=== PATIENT | male | born 1945 | race Caucasian/White ===

== ENCOUNTER 2017-10-29 14:32 | Inpatient (IN) | payer OTHER ==
[~2017-10-29] VITALS: Ht 185.4 cm; Wt 107.1 kg
[2017-10-29] VITALS (10 sets, daily range): BP systolic 123–175; BP diastolic 77–107
[2017-10-29] MEDS ORDERED: COUM2TAB22 PO (14:46)
[2017-10-29] MEDS ORDERED: FLOM5CAP PO (14:46)
[2017-10-29] MEDS ORDERED: LIPI80TA PO (14:46)
[2017-10-29] MEDS ORDERED: MORPHINE 2 MG/ML 1ML SYRINGE IV ONE (15:15)
[2017-10-29 15:35] LABS: MEAN CORPUSCULAR HEMOGLOBIN 32.7 pg (27.0-33.0); MEAN CORPUSCULAR HGB CONC 33.6 g/dl (32.0-36.5); MEAN CORPUSCULAR VOLUME 97.3 fl (80.0-96.0); PLATELET COUNT, AUTOMATED 134 10^3/uL (150-450); RED CELL DISTRIBUTION WIDTH 14.1 % (11.5-14.5)
[2017-10-29 15:43] LABS: INR 2.67
[2017-10-29 15:56] LABS: CALCIUM LEVEL 8.3 MG/DL (8.8-10.2); CREATININE FOR GFR 1.26 MG/DL (0.70-1.30); GLOMERULAR FILTRATION RATE 59.9 (>42); POTASSIUM SERUM 3.9 MEQ/L (3.5-5.1)
[2017-10-29] MEDS ORDERED: ISOVUE-370 76% 100ML VIAL (Q9967) As Ordered ONE (15:56)
[2017-10-29] MEDS ORDERED: KCL 20MEQ IN D5/NS 1000ML 1,000 ML IV SCH (16:19)
[2017-10-29] MEDS ORDERED: ACETAMINOPHEN TAB 650MG DOSE (2X325MG) PO PRN (16:30)
[2017-10-29] MEDS ORDERED: ONDANSETRON 4MG/2ML VIAL (J2405) IV PRN (16:30)
[2017-10-29] MEDS ORDERED: BISACODYL 10 MG SUPP PR PRN (16:30)
[2017-10-29] MEDS ORDERED: NORCO, ANEXSIA 5/325MG TABLET (HYDROcodone/ACETAMINOPHEN) PO PRN (16:30)
[2017-10-29] MEDS ORDERED: WARF-23 PO (16:45)
--- NOTE | 2017-10-29 16:55 | REP ---
CT CHEST WITH IV CONTRAST: TECHNIQUE: Axial contrast enhanced images from the thoracic inlet to the upper abdomen using 100 mL Isovue 370 intravenous contrast material with multiplanar reformations. There is a large left pneumothorax with shift of heart and mediastinal structures to the right. There is extensive left lower lobe atelectasis. There is mild right lower lobe atelectasis. A tiny amount of left pleural fluid is present. Mild scattered atherosclerotic calcifications is seen of the thoracic aorta without dissection. There is a left pericardial cyst measuring 3.8 cm in diameter. No pericardial effusion is seen. No adenopathy is seen in the chest. There are fractures of the left 4th through 6th ribs. There is a small hiatal hernia. In the upper abdomen there is a midline anterior abdominal hernia containing a bowel loop which is only partially imaged on the most inferior sections. Small gallstones are seen in the gallbladder. Small right renal cyst is noted superiorly. There is a large left renal cyst superiorly measuring about 9.7 cm in diameter. IMPRESSION: Large left pneumothorax with mild shift of heart and mediastinal structures to the right. Bilateral atelectatic changes in the lungs. Left 4th through 6th rib fractures. Left pericardial cyst. Small hiatal hernia. Anterior abdominal hernia is only partially imaged and contains a bowel loop. Gallstones in gallbladder. Signed by Ta Gonzalez MD 10/29/2017 06:00 P
[2017-10-29] MEDS ORDERED: FLUMAZENIL 0.5 MG/5 ML VIAL As Ordered ONE (17:24)
[2017-10-29] MEDS ORDERED: MIDAZOLAM INJ 2 MG/2 ML VIAL (J2250) As Ordered ONE ×2 (17:26→17:27)
[2017-10-29] MEDS ORDERED: LIDOCAINE 1% MDV 20ML VIAL As Ordered ONE (17:27)
[2017-10-29] MEDS ORDERED: LIDOCAINE 1% MDV 20ML VIAL SC ONE (17:47)
[2017-10-29] MEDS ORDERED: NS 1,000 ML IV SCH (18:20)
[2017-10-29] MEDS ORDERED: NALBUPHINE HCL 10 MG/ML AMP (J2300) IV PRN (18:30)
[2017-10-29] MEDS ORDERED: EPIDURAL/PCA KEYS XX PRN (18:30)
[2017-10-29] MEDS ORDERED: NALOXONE INJ 0.4 MG/1 ML VIAL (J2310) IV PRN (18:30)
[2017-10-29] MEDS ORDERED: diphenhydrAMINE INJ 50MG/ML VIAL (J1200) IV PRN (18:30)
[2017-10-29] MEDS ORDERED: MORPHINE 1MG/ML IN 0.9% NACL 100ML IV BAG IV PRN (18:30)
[2017-10-29] MEDS ORDERED: MIDAZOLAM INJ 2 MG/2 ML VIAL (J2250) IV STA (18:34)
[2017-10-29] MEDS ORDERED: MIDAZOLAM INJ 2 MG/2 ML VIAL (J2250) IV ONE (18:45)
--- NOTE | 2017-10-29 18:51 | REP ---
Portable chest x-ray: Single view. History: Status post chest tube insertion. Pneumothorax. Comparison study: CT scan from earlier today. Findings: Current portable chest x-ray demonstrates a left apical chest tube. The left lung is reinflated. A tiny sliver of left apical pleural air is seen. There is some pleural thickening along the left lateral chest wall and soft tissue emphysema is seen inferior and lateral to the left rib cage. There is still some hazy opacity in the left lower lobe region. Right lung remains clear. Oxygen delivery tubing is seen. Impression: Left pleural drainage catheter is in place reinflating the left lung. Signed by Jose Rafael Gates MD 10/29/2017 09:43 P
[2017-10-29] MEDS: KETOROLAC 30 MG/ML VIAL (J1885) IV SCH (19:43)
[2017-10-29] MEDS: WARFARIN SOD 1 MG TAB PO SCH (19:45)
[2017-10-29] MEDS: WARFARIN SOD 5 MG TAB PO SCH (19:45)
[2017-10-29] MEDS ORDERED: HEPARIN SOD (PORCINE) 5000 UNITS/ML VIAL SC SCH (21:00)
[2017-10-29] MEDS: ALBUTEROL SULFATE 2.5 MG/0.5 ML INH NEB SOLN NEB SCH (21:20)
[2017-10-29] MEDS: DOCUSATE SODIUM 100 MG CAP PO SCH (21:32)
[2017-10-29] MEDS: TAMSULOSIN 0.4 MG CAP PO SCH (21:32)
[2017-10-29] MEDS: ATORVASTATIN 20 MG TAB PO SCH (21:33)
[2017-10-30] MEDS: ALBUTEROL SULFATE 2.5 MG/0.5 ML INH NEB SOLN NEB SCH ×4 (01:25→20:00)
[2017-10-30] MEDS: KETOROLAC 30 MG/ML VIAL (J1885) IV SCH ×4 (01:43→17:45)
[2017-10-30 04:00] VITALS: BP 137/82
[2017-10-30 05:25] LABS: MEAN CORPUSCULAR HEMOGLOBIN 32.8 pg (27.0-33.0); MEAN CORPUSCULAR HGB CONC 33.7 g/dl (32.0-36.5); MEAN CORPUSCULAR VOLUME 97.3 fl (80.0-96.0); PLATELET COUNT, AUTOMATED 111 10^3/uL (150-450); RED CELL DISTRIBUTION WIDTH 14.3 % (11.5-14.5)
[2017-10-30 05:37] LABS: ADD MANUAL DIFFER YES; DIFF SLIDE NUMBER 97; POSITIVE DIFF POS FLAG; WHITE BLOOD COUNT 22.8 10^3/uL (4.0-10.0)
[2017-10-30 05:52] LABS: ANION GAP 7 MEQ/L (8-16); BLOOD UREA NITROGEN 22 MG/DL (7-18); CALCIUM LEVEL 7.5 MG/DL (8.8-10.2); CARBON DIOXIDE LEVEL 23 MEQ/L (21-32); CHLORIDE LEVEL 112 MEQ/L (98-107); CREATININE FOR GFR 0.98 MG/DL (0.70-1.30); GLOMERULAR FILTRATION RATE > 60.0 (>42); GLUCOSE, FASTING 105 MG/DL (83-110); POTASSIUM SERUM 3.7 MEQ/L (3.5-5.1); SODIUM LEVEL 142 MEQ/L (136-145)
[2017-10-30 05:53] LABS: ABG BASE EXCESS -1.1 (-2.0-2.0); ABG HCO3 22.8 MEQ/L (22.0-26.0); ABG PARTIAL PRESSURE CO2 35.6 mmHg (35.0-45.0); ABG PARTIAL PRESSURE O2 99.6 mmHg (75.0-100.0); ABG STANDARD HCO3 23.6 MEQ/L (22.0-26.0); ABG TOTAL CO2 23.9 MEQ/L (23.0-31.0); ABG pH (ARTERIAL) 7.424 UNITS (7.350-7.450)
[2017-10-30 07:57] VITALS: BP 129/78
--- NOTE | 2017-10-30 08:08 | HPE ---
DATE OF ADMISSION: 10/29/2017 The patient is seen at the request of the emergency room for multiple rib fractures and a large left sided pneumothorax. HISTORY OF PRESENT ILLNESS: The patient is a 72-year-old white male who was on a 38 inch scaffold installing a ceiling when he lost his balance and stepped off hitting his left side. He did not lose consciousness. It was a misstep and there was no antecedent dizziness or blackout spells. When he hit the ground, he felt immediate pain, but denies shortness of breath. Prior to the incident, he did not complain of shortness of breath. He had a cough with green sputum production every morning. There has been no fevers, chills or sweats. There is no exposure to tuberculosis and there is no convincing asbestos exposure. There has been no dysphagia. In the emergency room, his vital signs showed an oxygen saturation of 86% on room air. His respiratory rate is 20. Blood pressure has always been stable at 145/85 in the emergency room. A chest CT showed him to have a nearly 100% pneumothorax. It does not look as if a chest x-ray was obtained. PAST MEDICAL HISTORY: 1. Prior stroke about 11 years ago which affected his entire left side which resolved spontaneously. He is on warfarin for this prior stroke. 2. Benign prostatic hypertrophy (BPH) for which he is on tamsulosin. 3. Hypercholesterolemia for which he is on Lipitor. PRIOR SURGERIES: 1. Appendectomy as a child. 2. Deviated septum repair. 3. Left ankle repair. MEDICATIONS AT HOME: - Lipitor 80 mg at bedtime - Flomax 0.4 mg every bedtime - warfarin 11 mg every two days alternating with 12 mg every two days PAST TRAVEL HISTORY: He has traveled to [place] and to [place]. No travel to the [facility] or to the [facility]. No foreign travel. EXPOSURES: No dogs or birds at home. He has one cat. No tuberculosis exposure or asbestos exposure. 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 HABITS: Quit smoking 50 years ago. Occasionally drinks three or four beers per week. No illicit drugs. FAMILY HISTORY: Noncontributory to the acute event. REVIEW OF SYSTEMS: Constitutional: See history of present illness (HPI). Without fever, chills, sweats or night sweats. Eyes: Without diplopia. Without transient monocular blindness. Wears glasses. Without prior jaundice. Nose: Without epistaxis. Mouth: Wears dentures. Pulmonary: Does not complain of shortness of breath. Has the above cough. Does not wheeze. Cardiovascular: Without prior documented myocardial infarctions. Without paroxysmal nocturnal dyspnea or orthopnea. No intermittent claudication. No chest pain consistent with angina. Has occasional swelling of his peripheral extremities which is relieved with leg elevation. Gastrointestinal (GI): Without nausea, vomiting, diarrhea, constipation, melena, hematochezia, hematemesis, or abdominal pain. Denies abdominal pain now. Genitourinary (): Without dysuria, hematuria or prior history of renal stones. Neurologic: Without paresthesias, paralyses or seizures. Endocrine: Without diabetes or thyroid disease. Psychiatric: Without pathological psychoses, anxieties or depressions. Hematologic: Has prolonged bleeding time secondary to his warfarin. Lymphatics: Without lumps and bumps in his neck, axilla or groins. PHYSICAL EXAMINATION: Vital Signs: Blood pressure 156/83. Respiratory rate 18 without the use of accessory muscles. His temperature is 98.9. He is 98% saturated on 2 liters nasal cannula. General: Well developed, well nourished, obese, white male in distress with pain on the left side which hurts with moving. Eyes: Pupils equal round and reactive to light. Extraocular movements intact. Sclerae anicteric. Nose without deformity. Mouth shows his mucous membranes to be pink and moist. Lips and commissures without lesions. There is no thrush. He is wearing dentures. Neck is supple. There is no jugular venous distention. No subcutaneous emphysema. Trachea is midline. He has 2+ carotid pulses, without bruits. There is no thyromegaly or lymphadenopathy. Lungs show markedly decreased breath sounds on the left side with a percussion note that is full to the diaphragm on the left side. Right side shows normal vesicular sounds without wheezing, rhonchi or rales. Cardiac: Without murmurs, clicks, gallops or rubs. I cannot feel his point of maximal impulse (PMI). S1, S2 are normal. Cardiac sounds are distant. Abdomen is soft, nontender. Bowel sounds positive. There is no hepatomegaly. No costovertebral angle (CVA) tenderness. He has a ventral hernia or diastasis between the epigastrium and the umbilicus. Extremities: Show trace to 1+ pretibial edema with indentations for his socks. He does wear compression stockings. There is no calf tenderness. No differential swelling of the upper extremities. Skin is warm, dry and perfused, without cyanosis or mottling including that of the nail beds and the knees. Neurologic shows II-XII intact along with gross motor and gross sensation intact. Gait is not tested. Psychiatric shows him to be awake, alert and oriented times three with appropriate mood and affect and conversational. His white count today is 30,000 with hemoglobin and hematocrit of 14.5 and 43.0 and a platelet count of 134. There is no differential. Chemistries show normal electrolytes with a BUN and creatinine of 23 and 1.26 and a glomerular filtration rate of 59.9. Calcium is 8.3 with a glucose of 130. PT/INR are 29.5/2.[address] shows a nearly 80% pneumothorax on the left side with a mediastinal shift with the heart shifted to the right. There is some compression atelectasis from the pneumothorax. There are rib fractures in ribs possibly 11, 6, 5 and 4 laterally. There is no subcutaneous emphysema. Spleen is intact. He looks to have a very large left renal cyst. I do not see the body of the kidney as the CT does not go down that far. There is no pleural effusion or hemothorax at this point in time. Right adrenal is intact as is the left adrenal. Liver is intact. The pancreas is also intact. IMPRESSION: 1. Multiple rib fractures. 2. Traumatic pneumothorax. 3. Hypercholesterolemia. 4. Appropriate Coumadin coagulopathy. 5. History of CVA. 6. BPH. 7. Large left renal cyst. PLAN AND DISCUSSION: I will immediately place a chest tube to relieve the pneumothorax and right shift. As he is on Coumadin, I will treat him with HACK DRIVER pain control. His rib fractures are nondisplaced and do not need any other treatment. He is on Coumadin so I will not put him on heparin for deep vein thrombosis (DVT) prophylaxis.
[2017-10-30] MEDS: MOM 30ML SUSPENSION UDC PO SCH (09:00)
--- NOTE | 2017-10-30 09:57 | REP ---
CHEST, TWO VIEWS: Two views of the chest are performed and compared with prior study of 10/29/2017. There is a left chest tube again noted. I do not see a significant pneumothorax. Mild air is seen in the soft tissues of the left chest wall. There is mild right basilar atelectatic change. There is moderate left basilar consolidative opacity. Cardiomediastinal silhouette is unchanged. Signed by Ta Gonzalez MD 10/30/2017 05:22 P
[2017-10-30] MEDS: DOCUSATE SODIUM 100 MG CAP PO SCH ×2 (09:58→19:58)
[2017-10-30] MEDS: PANTOPRAZOLE 40MG TAB (PROTONIX) PO SCH (09:58)
[2017-10-30 12:00] VITALS: BP 134/78
--- NOTE | 2017-10-30 13:44 | RO ---
DATE OF PROCEDURE: 10/29/2017 PREPROCEDURE DIAGNOSIS: Left pneumothorax. POSTPROCEDURE DIAGNOSIS: Left pneumothorax. PROCEDURE: Insertion of left anterior chest tube. SURGEON: Dr. Alessandro Dinh [facility] PROGRAM RESIDENT: ANESTHESIA: DESCRIPTION OF PROCEDURE: Under satisfactory moderate sedation achieved with 3 mg of Versed, the patient was prepped and draped in the usual sterile fashion. The skin, fascia and pleura was infiltrated with 1% lidocaine. Incision was made and a tunnel was created into the chest wall without difficulty. A #20 chest tube was placed into the apex of the chest and secured with #2 Tevdek suture. The tube was connected to the Pleur-evac. The patient tolerated the procedure well and a chest x-ray is pending.
[2017-10-30 14:27] LABS: INR 3.79
[2017-10-30 14:35] LABS: REASON FOR REVIEW OTHER
[2017-10-30 16:00] VITALS: BP 104/55
[2017-10-30] MEDS ORDERED: WARFARIN SOD 4 MG TAB PO SCH (17:00)
[2017-10-30] MEDS: ATORVASTATIN 20 MG TAB PO SCH (19:57)
[2017-10-30] MEDS: TAMSULOSIN 0.4 MG CAP PO SCH (19:59)
[2017-10-30 20:00] VITALS: BP 126/75
[2017-10-30 23:59] VITALS: BP 119/72
[2017-10-31] MEDS: KETOROLAC 30 MG/ML VIAL (J1885) IV SCH ×4 (00:58→17:18)
[2017-10-31] MEDS: ALBUTEROL SULFATE 2.5 MG/0.5 ML INH NEB SOLN NEB SCH ×4 (01:59→20:00)
[2017-10-31 04:00] VITALS: BP 125/71
[2017-10-31 06:03] LABS: MEAN CORPUSCULAR HEMOGLOBIN 32.4 pg (27.0-33.0); MEAN CORPUSCULAR HGB CONC 33.3 g/dl (32.0-36.5); MEAN CORPUSCULAR VOLUME 97.5 fl (80.0-96.0); PLATELET COUNT, AUTOMATED 116 10^3/uL (150-450); RED CELL DISTRIBUTION WIDTH 14.6 % (11.5-14.5)
[2017-10-31 06:07] LABS: WHITE BLOOD COUNT 20.9 10^3/uL (4.0-10.0)
[2017-10-31 06:08] LABS: ADD MANUAL DIFFER YES; BLASTS POS FLAG; DIFF SLIDE NUMBER 58; POSITIVE DIFF POS FLAG; POSITIVE MORPH POS FLAG
[2017-10-31 06:14] LABS: INR 3.31
[2017-10-31 06:22] LABS: ANION GAP 7 MEQ/L (8-16); BLOOD UREA NITROGEN 26 MG/DL (7-18); CARBON DIOXIDE LEVEL 26 MEQ/L (21-32); CHLORIDE LEVEL 109 MEQ/L (98-107); CREATININE FOR GFR 1.02 MG/DL (0.70-1.30); GLOMERULAR FILTRATION RATE > 60.0 (>42); GLUCOSE, FASTING 109 MG/DL (83-110); POTASSIUM SERUM 4.2 MEQ/L (3.5-5.1); SODIUM LEVEL 142 MEQ/L (136-145)
[2017-10-31 08:00] VITALS: BP 134/77
--- NOTE | 2017-10-31 08:05 | IPN ---
DATE: 10/30/2017 This is the first hospital day for Mr. Kearns after falling off a scaffold and sustaining multiple rib fractures to the left side with a complete pneumothorax. Today his lung is fully expanded to the chest wall and there is no air leak. He is on a TITLE INSPECTOR pump. An epidural was not placed because he is on Coumadin for prior cerebrovascular accident (CVA). On physical examination his vital signs show a T-max of 97.7 with a heart rate that ranges between 71 and 64 in a sinus rhythm, respiratory rate of 18 and 20 without the use of accessory muscles who is 95 to 94% saturated now on room air. Blood pressure is ranging between 137/82 to 129/78. His intake and output over the past 24 hours has been recorded as 907 in and 500 out for a positivity of 500 mL. In the past 12 hours he has taken in 1877 mL in intake of which 740 of that is oral intake and 1000 in IV. I will stop his IV as his oral intake is adequate. He has put out 12 mL from the chest tube and there is no air leak. On physical examination his lung show equal breath sounds on either side with normal vesicular sounds, without wheezes, rhonchi or rales. Cardiac exam shows distant heart sounds without murmurs, clicks, gallops or rubs. I cannot feel his point of maximal impulse (PMI). S1 and S2 are normal. He is obese. Abdomen is soft and nontender. Bowel sounds are positive. There is no hepatomegaly. No costovertebral angle (CVA) tenderness, except that which is referable to the rib fractures on the left. Extremities show trace pretibial edema, no calf tenderness. No differential swelling of the upper extremities. Skin is warm, dry and perfused without cyanosis or mottling including that of the nail beds and the knees. Neck is supple. There is no jugular venous distention. No subcutaneous emphysema. Trachea is midline. Mouth shows his mucous membranes to be pink and moist. Lips and commissures without lesions. No thrush. Eyes show his pupils to be equal, reactive. Extraocular muscles intact. Sclera anicteric. Neuro shows II through XII intact. Gross motor and gross sensation intact. Gait is not tested. Psychiatric shows him to be awake, alert and oriented times three with appropriate mood, affect and conversational. His white count today is 22.8 down from 30.0 yesterday. Hemoglobin and hematocrit are 13.5 and 40.1 respectively with a platelet count of 111 and stable. Differential shows 21% neutrophils, 79% lymphocytes. There are no monocytes. Chemistries today show normal electrolytes with a BUN and creatinine of 22 and 0.98, glucose of 105 and a calcium of 7.5. PT/INR pending. Chest x-ray today shows the lung fully expanded to the chest wall. There are no infiltrates and there is no subcutaneous emphysema. IMPRESSION: 1. Multiple rib fractures left side. 2. Traumatic pneumothorax. 3. Hypercholesterolemia. 4. Appropriate Coumadin coagulopathy. 5. History of CVA. 6. Benign prostatic hypertrophy (BPH). 7. Large left renal cyst. 8. Leukocytosis with lymphocytosis. PLAN AND DISCUSSION: I will order PT/INR daily. He is on his home warfarin. I will discontinue his chest tube suction today. I will be able to get his tube out tomorrow and send him home on . I am a bit concerned about his differential with near 80% lymphocytes. I will order a manual differential for tomorrow.
[2017-10-31] MEDS: DOCUSATE SODIUM 100 MG CAP PO SCH ×2 (09:23→20:57)
[2017-10-31] MEDS: PANTOPRAZOLE 40MG TAB (PROTONIX) PO SCH (09:23)
[2017-10-31 12:00] VITALS: BP 132/72
[2017-10-31] MEDS ORDERED: FUROSEMIDE 40 MG/4 ML VIAL (J1940) IV ONE (12:00)
[2017-10-31] MEDS: PERCOCET 5MG/325MG TAB PO PRN ×2 (12:25→17:17)
[2017-10-31] MEDS: MOM 30ML SUSPENSION UDC PO SCH (12:25)
[2017-10-31] MEDS ORDERED: SLF 3 ML SYR IV PRN (13:15)
[2017-10-31] MEDS: WARFARIN SOD 1 MG TAB PO SCH (15:51)
[2017-10-31] MEDS: WARFARIN SOD 5 MG TAB PO SCH (15:51)
[2017-10-31 16:00] VITALS: BP 127/84
[2017-10-31] MEDS: SLF 3 ML SYR IV SCH ×2 (17:18→20:56)
--- NOTE | 2017-10-31 18:13 | REP ---
CHEST, TWO VIEWS: Two views of the chest are performed and compared to prior study of 10/30/2017. Left chest tube remains in good position. There is no evidence of significant pneumothorax. There is mild left pleural fluid or thickening. There is improved mild atelectatic change in the right base. There is left basilar consolidative atelectasis which is slightly improved on the lateral view. Cardiomediastinal silhouette is unchanged. IMPRESSION: Mild improvement of bibasilar atelectatic changes. Signed by Ta Gonzalez MD 11/01/2017 08:26 P
[2017-10-31 20:00] VITALS: BP 131/80
[2017-10-31] MEDS: TAMSULOSIN 0.4 MG CAP PO SCH (20:57)
[2017-10-31] MEDS: ATORVASTATIN 20 MG TAB PO SCH (21:00)
[2017-10-31 23:59] VITALS: BP 142/76
[2017-11-01] MEDS: KETOROLAC 30 MG/ML VIAL (J1885) IV SCH ×3 (00:20→11:45)
[2017-11-01] MEDS: PERCOCET 5MG/325MG TAB PO PRN ×3 (00:21→14:01)
[2017-11-01] MEDS: ALBUTEROL SULFATE 2.5 MG/0.5 ML INH NEB SOLN NEB SCH ×3 (02:00→13:08)
[2017-11-01 04:00] VITALS: BP 127/75
[2017-11-01 05:55] LABS: MEAN CORPUSCULAR HEMOGLOBIN 32.5 pg (27.0-33.0); MEAN CORPUSCULAR HGB CONC 33.2 g/dl (32.0-36.5); MEAN CORPUSCULAR VOLUME 98.1 fl (80.0-96.0); PLATELET COUNT, AUTOMATED 113 10^3/uL (150-450); RED CELL DISTRIBUTION WIDTH 14.3 % (11.5-14.5)
[2017-11-01 06:08] LABS: ANION GAP 5 MEQ/L (8-16); BLASTS POS FLAG; BLOOD UREA NITROGEN 28 MG/DL (7-18); CALCIUM LEVEL 7.9 MG/DL (8.8-10.2); CARBON DIOXIDE LEVEL 28 MEQ/L (21-32); CHLORIDE LEVEL 108 MEQ/L (98-107); CREATININE FOR GFR 1.05 MG/DL (0.70-1.30); GLOMERULAR FILTRATION RATE > 60.0 (>42); GLUCOSE, FASTING 110 MG/DL (83-110); POSITIVE DIFF POS FLAG; POSITIVE MORPH POS FLAG; POTASSIUM SERUM 4.5 MEQ/L (3.5-5.1); SODIUM LEVEL 141 MEQ/L (136-145)
[2017-11-01 06:09] LABS: ADD MANUAL DIFFER YES; DIFF SLIDE NUMBER 42
[2017-11-01 06:16] LABS: INR 2.37
[2017-11-01] MEDS: SLF 3 ML SYR IV SCH ×2 (06:21→11:46)
[2017-11-01 07:13] LABS: EOSINOPHILS 1 % (0-5)
[2017-11-01 07:30] VITALS: BP 105/57
[2017-11-01] MEDS: PANTOPRAZOLE 40MG TAB (PROTONIX) PO SCH (08:15)
[2017-11-01] MEDS: DOCUSATE SODIUM 100 MG CAP PO SCH (09:00)
[2017-11-01] MEDS: MOM 30ML SUSPENSION UDC PO SCH (09:00)
--- NOTE | 2017-11-01 09:26 | REP ---
CHEST, TWO VIEWS: Two views of the chest are performed. There is removal of the left chest tube. There is a small left apical pneumothorax, with the air gap approximately 2.8 cm in maximum thickness. There is a small loculated area of air and fluid posteriorly in the left lower hemothorax. There is mild bibasilar atelectatic change. There are no other acute findings. Signed by Ta Gonzalez MD 11/01/2017 08:35 P
[2017-11-01 12:15] VITALS: BP 118/56
[2017-11-01] MEDS ORDERED: PERCOCET PO (13:09)
--- NOTE | 2017-11-01 22:17 | IPN ---
DATE: 10/31/2017 Mr. Kearns was doing quite well. His pain is well controlled with GLUING PRESSMAN pump. He has no air leak. His vital signs show a T-max of 98.8 with a heart rate that ranges between 73 and 68 in a sinus rhythm, respiratory rate of 17 to 20 without the use of accessory muscles who is 93-90% saturated on 2 liters nasal cannula. His blood pressure is ranging between 128/75 to 119/72. His intake and output over the past 24 hours has been recorded as 2570 in and 817 out for a positivity of 1700 mL. His IV has been discontinued. He has put out 17 mL from his chest tube and there is no air leak. On physical examination lungs show equal breath sounds on either side. I hear no wheezes, rhonchi or rales with rather normal vesicular sounds. Percussion is full to the diaphragm. Cardiac exam is without murmurs, clicks, gallops or rubs. I cannot feel his point of maximal impulse (PMI). S1 and S2 are normal. Abdomen is soft and nontender. Bowel sounds are positive. There is no hepatomegaly. No costovertebral angle (CVA) tenderness. He is tympanitic and slightly distended. He has not yet had a bowel movement. Extremities show trace pretibial edema, no calf tenderness. No differential swelling of the upper extremities. Skin is warm, dry and perfused without cyanosis or mottling including that of the nail beds and the knees. Neck is supple. There is no jugular venous distention. No subcutaneous emphysema. Trachea is midline. Mouth shows his mucous membranes to be pink and moist. Lips and commissures without lesions. No thrush. Eyes show his pupils to be equal, reactive. Extraocular muscles intact. Sclera anicteric. Neuro shows II through XII intact. Gross motor and gross sensation intact. Gait is not tested. Psychiatric shows him to be awake, alert and oriented times three with appropriate mood, affect and conversational. His white count today is down to 20.9 from 30,000 on admission. Hemoglobin and hematocrit are 14.5 and 43.6. Platelet count is 115 and stable with a differential that shows 25% neutrophils, 68% lymphocytes, 2% monocytes. There are no immature forms and no toxic granulations. Chemistries today show normal electrolytes with a BUN and creatinine of 26 and 1.02, glucose of 109 and a calcium of 8.0. PT/INR is 32.42 and 3.31. I will again hold his Coumadin today. There are no blood gases on him today. Because of the lymphocytosis I did ask for a peripheral smear and manual differential. Indeed there is a leukocytosis with scattered smudge cells which is consistent with a low grade lymphoproliferative disorder, see discussion below. Chest x-ray today shows the lung fully expanded to the chest wall. The costophrenic angles are sharp. There is no hemothorax. There are no infiltrate. IMPRESSION: 1. Multiple rib fractures left side. 2. Traumatic pneumothorax. 3. Hypercholesterolemia. 4. Coumadin coagulopathy. 5. History of CVA. 6. Benign prostatic hypertrophy (BPH). 7. Left renal cyst. 8. 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 PLAN AND DISCUSSION: I will discontinue his chest tube today. I will discontinue the GLUING PRESSMAN and start him on oral pain control. Plan on discharging him tomorrow. As now the patient has revealed to me that he is being treated for leukemia and being followed for such, I will discontinue the flow cytometry that was suggested. I will also gently diurese him today.
--- NOTE | 2017-11-03 23:02 | DSES ---
DATE OF ADMISSION: 10/29/2017 DATE OF DISCHARGE: 11/01/2017 DISCHARGE DIAGNOSES: 1. Multiple rib fractures left side. 2. Traumatic pneumothorax. 3. Hypercholesterolemia. 4. Coumadin coagulopathy. 5. History of CVA. 6. BPH. 7. Large left renal cyst. 8. 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 HOSPITAL COURSE: The patient is a 72-year-old white male who fell from a 38-inch scaffold installing ceilings. He hit the ground, and he felt immediate pain. He was brought to the emergency room where he was found to have a pneumothorax, which was nearly 100%. A chest tube was immediately placed. Surprisingly, he did not develop a hemothorax as he is on daily Coumadin. He had an initial air leak which stopped, and the chest tube was removed on the second hospital day. The chest x-ray following the chest tube removal showed a very small residual airspace on the left side. He is being discharged today on his home medications, which include Lipitor 80 mg nightly, Flomax 0.4 mg nightly, warfarin 11 mg every other day, alternating with 12 mg every other day. He is also being placed on Percocet 5/325 every 4 hours as needed for pain. The hospital EMR discharge system is not working and the prescription was handwritten. The patient will see me in post-hospitalization followup in 2 weeks with a chest x-ray. He has been advised not to do any heavy lifting and to keep out of harms way for risks of falling.
== END 2017-11-01 14:40 | disposition home or self-care (01) | DRG 135 ==
LOC: EDBD 14:32 → M ED 14:32 → M ED INP 16:19 → M PCU 17:16
PROVIDERS: ADMIT Thoracic Surgery (Cardiothoracic Vascular Surgery); ATTEND Thoracic Surgery (Cardiothoracic Vascular Surgery)
PROC: 0W9B30Z Drainage of Left Pleural Cavity with Drainage Device, Percutaneous Approach (ICD-10-PCS; principal; 2017-10-29)
DX: S27.0XXA Traumatic pneumothorax, initial encounter (principal); S22.42XA Multiple fractures of ribs, left side, initial encounter for closed fracture; D47.1 Chronic myeloproliferative disease; W12.XXXA Fall on and from scaffolding, initial encounter; Y93.E9 Activity, other interior property and clothing maintenance; N40.0 Benign prostatic hyperplasia without lower urinary tract symptoms; E78.00 Pure hypercholesterolemia, unspecified; E66.9 Obesity, unspecified; Y99.0 Civilian activity done for income or pay; Y92.129 Unspecified place in nursing home as the place of occurrence of the external cause; Z86.73 Personal history of transient ischemic attack (TIA), and cerebral infarction without residual deficits; Z79.01 Long term (current) use of anticoagulants; Z79.899 Other long term (current) drug therapy; Z87.891 Personal history of nicotine dependence; Z68.31 Body mass index [BMI] 31.0-31.9, adult